=== PATIENT | male | born 1955 | race Caucasian/White ===

== ENCOUNTER 2016-12-05 05:24 | Inpatient (IN) | payer BC, OTHER ==
[2016-12-05] MEDS ORDERED: IPRATROPIUM-ALBUTEROL 3 ML NEB INHALATION STA (05:35)
--- NOTE | 2016-12-05 05:38 | ED ---
Chest Pain HPI - General Source: patient, RN notes reviewed Mode of arrival: wheelchair Limitations: no limitations - History of Present Illness MD Complaint: chest pain, other <Julien Rodriguez - Last Filed: 12/05/16 06:57> <Rich Borja - Last Filed: 12/05/16 08:35> - General Stated Complaint: RYAN, right side pain Time Seen by Provider: 12/05/16 05:30 - History of Present Illness Initial Comments: This is a 61-year-old male who states he had the onset of difficulty breathing is sharp right-sided chest pain this started about 2 days ago. He has any cough productive of clear phlegm no fevers chills or sweats he has no prior history of heart or lung disease though he is a daily marijuana smoker. The pain does get worse with movements and deep breathing. He points to the right anterior chest wall as area of the pain. The pain is mild to moderate in severity when necessary. (Julien Rodriguez) - Related Data Allergies Allergy/AdvReac Type Severity Reaction Status Date / Time No Known Allergies Allergy Verified 12/05/16 05:42 Review of Systems ROS Other: All systems not noted in ROS Statement are negative. <Julien Rodriguez - Last Filed: 12/05/16 06:57> ROS Other: All systems not noted in ROS Statement are negative. <Rich Borja - Last Filed: 12/05/16 08:35> ROS Statement: Those systems with pertinent positive or pertinent negative responses have been documented in the HPI. EKG Findings - EKG Results: EKG: interpreted by ERMD, WNL, sinus rhythm, normal axis, normal QRS, normal ST/ T, no acute changes (EKG shows normal sinus rhythm of 83. Interval 142 QRS 92 ET since QTC of 368/[address]-T wave changes this is a normal-appearing EKG.) <Julien Rodriguez - Last Filed: 12/05/16 06:57> Past Medical History Past Medical History: No Reported History History of Any Multi-Drug Resistant Organisms: None Reported Past Surgical History: Hernia Repair Past Psychological History: No Psychological Hx Reported Smoking Status: Current every day smoker Past Alcohol Use History: Daily Past Drug Use History: Marijuana <Julien Rodriguez - Last Filed: 12/05/16 06:57> General Exam Limitations: no limitations General appearance: alert, anxious Head exam: Present: atraumatic, normocephalic, normal inspection Eye exam: Present: normal appearance, PERRL, EOMI. Absent: scleral icterus, conjunctival injection, periorbital swelling ENT exam: Present: normal exam, mucous membranes moist Neck exam: Present: normal inspection. Absent: tenderness, meningismus, lymphadenopathy Respiratory exam: Present: wheezes, decreased breath sounds. Absent: respiratory distress, rales, rhonchi, stridor Cardiovascular Exam: Present: regular rate, normal rhythm, normal heart sounds. Absent: systolic murmur, diastolic murmur, rubs, gallop, clicks GI/Abdominal exam: Present: soft, normal bowel sounds. Absent: distended, tenderness, guarding, rebound, rigid Extremities exam: Present: normal inspection, full ROM, normal capillary refill. Absent: tenderness, pedal edema, joint swelling, calf tenderness Back exam: Present: normal inspection Neurological exam: Present: alert, oriented X3, CN II-XII intact Psychiatric exam: Present: normal affect, normal mood Skin exam: Present: warm, dry, intact, normal color. Absent: rash <Julien Rodriguez - Last Filed: 12/05/16 06:57> <Rich Borja - Last Filed: 12/05/16 08:35> - General Exam Comments Initial Comments: This is a well-developed well-nourished awake alert oriented 3 male (Julien Rodriguez) Course <Julien Rodriguez - Last Filed: 12/05/16 06:57> <Rich Borja - Last Filed: 12/05/16 08:35> Vital Signs 12/05/16 12/05/16 12/05/16 05:31 05:39 06:00 Temperature 98.6 F Pulse Rate 82 84 Respiratory 17 17 Rate Blood Pressure 165/110 O2 Sat by Pulse 97 Oximetry 12/05/16 12/05/16 12/05/16 06:06 06:17 08:00 Temperature 99 F Pulse Rate 88 84 81 Respiratory 20 19 Rate Blood Pressure 133/90 131/91 O2 Sat by Pulse 97 98 Oximetry - Reevaluation(s) Reevaluation #1: 12/05/16 06:57 I did discuss findings with the patient and family patient will get a CAT scan of the chest to rule out PE. The case will be discussing endorsed to Dr. Borja who will make the final disposition (Julien Rodriguez) 12/05/16 07:55 Chest x-ray reviewed by myself shows right basilar scarring versus atelectasis. No focal consolidation. Computed tomography scan of the chest read by cardiology shows no large pulmonary emboli. Limited exam. Right middle lobe atelectasis or pneumonia. Left adrenal mass, likely adenoma. 12/05/16 08:33 Patient reexamined and resting comfortably in bed. Patient still complains of discomfort on the right side of the chest. Patient does admit to having some cough and some sputum production. Patient will be covered with antibiotics for possible ammonia. Limited computed tomography scan therefore VQ scan will be ordered. Patient was updated on results including adrenal mass and need for follow-up with adrenal mass. Dr. Kruse has been paged for admission. 12/05/16 08:33 Patient does not meet sepsis criteria (Rich Borja) Disposition <Julien Rodriguez - Last Filed: 12/05/16 06:57> Decision Time: 08:34 <Rich Borja - Last Filed: 12/05/16 08:35> Clinical Impression: Chest pain, Pneumonia Disposition: ADMITTED IP TO THIS HOSP Referrals: Nonstaff,Physician [Primary Care Provider] - 1-2 days
[2016-12-05 05:55] LABS: Basophils % (A) 0 %; CH 33.4; Eosinophils # (A) 0.1 k/uL (0-0.7); Eosinophils % (A) 2 %; HCT 44.2 % (39.0-53.0); HDW 1.99; HGB 14.3 gm/dL (13.0-17.5); Luc # (Auto) 0.22; Luc % (Auto) 3; Lymphocytes # (A) 1.3 k/uL (1.0-4.8); Lymphocytes % (A) 19 %; MCHC 32.4 g/dL (31.0-37.0); MCV 101.7 fL (80.0-100.0); Macrocytosis Slight; Mean Platelet Volume 7.6; Monocytes # (A) 0.6 k/uL (0-1.0); Monocytes % (A) 9 %; Neutrophils # (A) 4.8 k/uL (1.3-7.7); Neutrophils % (A) 68 %; RBC 4.35 m/uL (4.30-5.90); RDW 13.6 % (11.5-15.5); WBC 7.1 k/uL (3.8-10.6); WBC (Perox) 7.22
[2016-12-05 06:05] LABS: ALT 70 U/L (21-72); AST 71 U/L (17-59); Alkaline Phosphatase 67 U/L (38-126); Anion Gap 9 mmol/L; Blood Urea Nitrogen 9 mg/dL (9-20); Calcium 9.4 mg/dL (8.4-10.2); Carbon Dioxide 29 mmol/L (22-30); Chloride 100 mmol/L (98-107); Glucose 87 mg/dL (74-99); Magnesium 1.9 mg/dL (1.6-2.3); Non-African American GFR(MDRD) >60 (>60 ml/min/1.73 sqM); Potassium 4.2 mmol/L (3.5-5.1); Sodium 138 mmol/L (137-145); Total Bilirubin 1.3 mg/dL (0.2-1.3); Total Protein 6.8 g/dL (6.3-8.2)
[2016-12-05 06:08] LABS: INR 0.9 (<1.2); Partial Thromboplastin Time 25.1 sec (22.0-30.0); Prothrombin Time 9.3 sec (9.0-12.0)
[2016-12-05 06:17] LABS: Creatine Kinase 330 U/L (55-170)
--- NOTE | 2016-12-05 06:24 | XR ---
Exam: XR CXR 2 VIEWS History: Chest pain. Comparison: None provided. Technique: 2 views. Findings: Bibasilar atelectasis/scarring, right greater than left. No definite consolidation appreciated. Heart shadow is normal in size. Pression: Probably bibasilar atelectasis/scarring. No definite focal consolidation.
[2016-12-05 06:30] LABS: Troponin I <0.012 ng/mL (0.000-0.034)
[2016-12-05] MEDS ORDERED: RX INFO: IV CONTRAST WAS GIVEN 1 EACH MISC MISCELLANE PRN (06:56)
--- NOTE | 2016-12-05 07:36 | CT ---
EXAMINATION TYPE: CT angio chest DATE OF EXAM: 12/05/2016 7:26 AM COMPARISON: NONE HISTORY: Chest pain and SOB CT DLP: 305 mGycm Automated exposure control for dose reduction was used. CONTRAST: CTA scan of the thorax is performed with IV Contrast, patient injected with 70 mL of Omnipaque 350, p ulmonary embolism protocol. . FINDINGS: There is right middle lobe airspace disease. There is bibasilar airspace disease. This may represent atelectasis or pneumonia. There is no significant axillary, mediastinal or hilar adenopathy. There is a small right effusion. T here is no pericardial fluid. The heart is mildly enlarged. There is a suboptimal contrast bolus. There are no large pulmonary emboli. The aorta is normal in caliber without evidence of dissection. There is part of a metallic lead in place at the base of the heart. Most of the lesion has been remov ed. There is a low attenuating 2.2 cm left adrenal mass. The right adrenal gland is normal. Visualized portions of the upper abdomen are otherwise unremarkable. There is minimal hypertrophic spondylosis within the dorsal spine. IMPRESSION: 1. SUBOPTIMAL EXAMINATION DEMONSTRATING NO LARGE PULMONARY EMBOLI. 2. CARDIOMEGALY. 3. RIGHT MIDDLE AND BIBASILAR AIRSPACE DISEASE EITHER REPRESENTING ATELECTASIS OR PNEUMONIA. NUMBER 4 CARDIOMEGALY. 5. HYPOATTENUATING LEFT ADRENAL MASS. STATISTICALLY IS MOST LIKELY AN ADRENAL ADENOMA. 6. MINIMAL DEGENERATIVE CHANGE WITHIN THE SPINE.
[2016-12-05] MEDS ORDERED: IPRATROPIUM-ALBUTEROL 3 ML NEB INHALATION PRN (08:35)
[2016-12-05] MEDS ORDERED: AZITHROMYCIN 500 MG in SODIUM CHLORIDE 0.9% 250 ML IVPB STA (08:35)
[2016-12-05] MEDS ORDERED: NITROGLYCERIN SL TABS 0.4 MG TAB SUBLINGUAL PRN (08:35)
[2016-12-05] MEDS ORDERED: PNEUMONIA PROTOCOL UTILIZED 1 EACH MISC PO PRN (08:35)
[2016-12-05] MEDS ORDERED: SODIUM CHLORIDE 0.9% 1,000 ML IV SCH (08:45)
--- NOTE | 2016-12-05 10:54 | NM ---
EXAMINATION TYPE: NM pul vent and perfuse DATE OF EXAM: 12/05/2016 COMPARISON: NONE HISTORY: Chest pain and dyspnea. TECHNIQUE: Utilizing inhalation of 70 mCi Tc 99m DTPA aerosol and intravenous injection of 5.43 mCi of Tc 99m MAA, ventilation and perfusion images are acquired post injection in multiple projections. FINDINGS: Normal radiotracer distribution is noted in the lungs. There is no evidence of mismatched defects. IMPRESSION: THIS EXAMINATION IS LOW PROBABILITY FOR PULMONARY EMBOLUS.
[2016-12-05] MEDS ORDERED: HYDROcodone/APAP 5-325MG 1 EACH TAB PO STA (11:06)
[2016-12-05 12:18] LABS: Creatine Kinase 236 U/L (55-170)
[2016-12-05 12:31] LABS: Troponin I <0.012 ng/mL (0.000-0.034)
[2016-12-05 12:36] LABS: Creatine Kinase MB 2.7 ng/mL (0.0-2.4)
[2016-12-05 14:05] VITALS: BP 136/83; PULSE 96; RESP 16; TEMP 98.4
--- NOTE | 2016-12-05 14:51 | P.HPIM ---
History of Present Illness Patient is a very pleasant 61-year-old gentleman came with sharp right-sided chest pain started about 3 days ago. Patient chest pain is pruritic in nature. Patient denied any flulike symptoms cough. Patient son was recently diagnosed with pleurisy. Patient pain improved now. Patient underwent CT angios the chest which did not show any pulmonary embolism underwent VQ scan as well which did not show any PE. Patient CAT scan findings are not consistent with pneumonia. Patient does have tenderness upon palpation of the right side of the chest. Patient was ruled out acute coronary syndromes with troponin and EKG which showed sinus rhythm. Patient does smoke marijuana once a day. Patient denied any fever chills, cough patient has good air entry into bilateral lung franklin. Patient probably has pleurisy or musculoskeletal chest pain patient will be discharged on naproxen patient takes lansoprazole for gastroesophageal reflux disease. If his symptoms of gastroesophageal reflux disease get worse with naproxen patient will need prednisone and patient will follow with his primary care physician for that. Review of Systems REVIEW OF SYSTEMS: CONSTITUTIONAL: No fever, no malaise, no fatigue. HEENT: No recent visual problems or hearing problems. Denied any sore throat. CARDIOVASCULAR: orthopnea, PND, no palpitations, no syncope. PULMONARY: No shortness of breath, no cough, no hemoptysis. GASTROINTESTINAL: No diarrhea, no nausea, no vomiting, no abdominal pain. Normoactive bowel sounds. NEUROLOGICAL: No headaches, no weakness, no numbness. HEMATOLOGICAL: Denies any bleeding or petechiae. GENITOURINARY: Denies any burning micturition, frequency, or urgency. MUSCULOSKELETAL/RHEUMATOLOGICAL: Denies any joint pain, swelling, or any muscle pain. ENDOCRINE: Denies any polyuria or polydipsia. The rest of the 14-point review of systems is negative. Past Medical History Past Medical History: GERD/Reflux History of Any Multi-Drug Resistant Organisms: None Reported Past Surgical History: Hernia Repair Additional Past Surgical History / Comment(s): right ACL repair Past Psychological History: No Psychological Hx Reported Smoking Status: Never smoker Past Alcohol Use History: Daily Past Drug Use History: Marijuana - Past Family History Mother Family Medical History: No Reported History Medications and Allergies Home Medications Medication Instructions Recorded Confirmed Type Dronabinol [Marinol] 2.5 mg PO DAILY PRN 12/05/16 12/05/16 History Lansoprazole [Prevacid] 30 mg PO DAILY 12/05/16 12/05/16 History Multivitamins, Thera [Multivitamin 1 tab PO DAILY 12/05/16 12/05/16 History (formulary)] Quintin's Wort 150 mg PO DAILY 12/05/16 12/05/16 History Allergies Allergy/AdvReac Type Severity Reaction Status Date / Time No Known Allergies Allergy Verified 12/05/16 05:42 Physical Exam Vitals: Vital Signs Temp Pulse Pulse Resp BP BP Pulse Ox 12/05/16 14:03 98.4 F 96 16 136/83 98 12/05/16 11:21 99 F 93 18 147/100 98 12/05/16 10:59 93 18 147/100 98 12/05/16 09:33 89 12/05/16 09:23 86 12/05/16 09:00 89 19 140/91 97 12/05/16 08:00 99 F 81 19 131/91 98 12/05/16 06:17 84 20 133/90 97 12/05/16 06:06 88 12/05/16 06:00 84 12/05/16 05:39 17 12/05/16 05:31 98.6 F 82 17 165/110 97 Intake and Output 12/04/16 12/05/16 12/05/16 22:59 06:59 14:59 Other: Weight 84.822 kg PHYSICAL EXAMINATION: GENERAL: The patient is alert and oriented x3, not in any acute distress. Well developed, well nourished. HEENT: Pupils are round and equally reacting to light. EOMI. No scleral icterus. No conjunctival pallor. Normocephalic, atraumatic. No pharyngeal erythema. No thyromegaly. CARDIOVASCULAR: S1 and S2 present. No murmurs, rubs, or gallops. PULMONARY: Chest is clear to auscultation, no wheezing or crackles. Patient has reproducible chest pain ABDOMEN: Soft, nontender, nondistended, normoactive bowel sounds. No palpable organomegaly. MUSCULOSKELETAL: No joint swelling or deformity. EXTREMITIES: No cyanosis, clubbing, or pedal edema. NEUROLOGICAL: Gross neurological examination did not reveal any focal deficits. SKIN: No rashes. Results CBC & Chem 7: 12/05/16 05:45 12/05/16 05:45 Labs: Abnormal Lab Results - Last 24 Hours (Table) 12/05/16 12/05/16 12/05/16 Range/Units 05:45 05:45 05:45 MCV 101.7 H (80.0-100.0) fL D-Dimer (<0.60) mg/L FEU AST 71 H (17-59) U/L Total Creatine Kinase 330 H (55-170) U/L CK-MB (CK-2) 4.0 H* (0.0-2.4) ng/mL 12/05/16 12/05/16 Range/Units 05:45 11:22 MCV (80.0-100.0) fL D-Dimer 1.71 H (<0.60) mg/L FEU AST (17-59) U/L Total Creatine Kinase 236 H (55-170) U/L CK-MB (CK-2) 2.7 H* (0.0-2.4) ng/mL Thrombosis Risk Factor Assmnt - Choose All That Apply Each Risk Factor Represents 2 Points: Age 61-74 years Thrombosis Risk Factor Assessment Total Risk Factor Score: 2 Thrombosis Risk Factor Assessment Level: Low Risk Assessment and Plan Plan: #1 chest pain: Secondary to pleurisy or musculoskeletal in nature or costochondritis. Patient will be discharged on naproxen. Rule out pulmonary embolism. #2 rule out pulmonary embolism #3 gastric esophageal reflux disease #4 marijuana use :counseling was provided
--- NOTE | 2016-12-05 14:52 | P.DS ---
Providers Date of admission: 12/05/16 08:35 Attending physician: Leonel Kruse Primary care physician: Physician Nonstaff Hospital Course: Please refer to HPI Plan - Discharge Summary New Discharge Prescriptions: New Naproxen [Naprosyn] 500 mg PO Q12HR #15 tab Discontinued traMADol HCL [Ultram] 50 mg PO BID PRN PRN Reason: Pain oxyCODONE HCL 20 mg PO BID PRN PRN Reason: Pain No Action Lansoprazole [Prevacid] 30 mg PO DAILY Multivitamins, Thera [Multivitamin (formulary)] 1 tab PO DAILY Dronabinol [Marinol] 2.5 mg PO DAILY PRN PRN Reason: IBS Quintin's Wort 150 mg PO DAILY Discharge Medication List Dronabinol [Marinol] 2.5 mg PO DAILY PRN 12/05/16 [History] Lansoprazole [Prevacid] 30 mg PO DAILY 12/05/16 [History] Multivitamins, Thera [Multivitamin (formulary)] 1 tab PO DAILY 12/05/16 [History ] Naproxen [Naprosyn] 500 mg PO Q12HR #15 tab 12/05/16 [Rx] Fries's Wort 150 mg PO DAILY 12/05/16 [History] Follow up Appointment(s)/Referral(s): Nonstaff,Physician [Primary Care Provider] - 1-2 days Discharge Disposition: HOME SELF-CARE
[2016-12-06] MEDS ORDERED: ASPIRIN 325 MG TAB PO SCH (09:00)
[2016-12-06] MEDS ORDERED: AZITHROMYCIN 500 MG TAB PO SCH (09:00)
== END 2016-12-05 16:09 | disposition home or self-care (01) | DRG 195 ==
LOC: EC 05:24 → 5MS5E 08:35 → 3SUR 09:13
PROVIDERS: ADMIT Hospitalist; ATTEND Hospitalist
DX: R09.1 Pleurisy (principal); F12.90 Cannabis use, unspecified, uncomplicated; K21.9 Gastro-esophageal reflux disease without esophagitis; R93.49 Abnormal radiologic findings on diagnostic imaging of other urinary organs; Z71.51 Drug abuse counseling and surveillance of drug abuser; Z82.69 Family history of other diseases of the musculoskeletal system and connective tissue; Z79.899 Other long term (current) drug therapy
CPT/HCPCS: 36415; 71020; 71275; 78582; 80053; 82550; 82553; 83735; 83880; 84484; 85025; 85379; 85610; 85730; 87040; 93005; 94640; 96365; 96367; 99285

== ENCOUNTER → 2020-01-03 | Outpatient (CLI) | payer MEDICARE ==
--- NOTE | 2020-01-03 13:27 | US ---
EXAMINATION TYPE: US venous doppler duplex LE LT DATE OF EXAM: 01/03/2020 1:21 PM COMPARISON: NONE CLINICAL HISTORY: R60.0 localized edema. Left leg pain/swelling SIDE PERFORMED: Left TECHNIQUE: The lower extremity deep venous system is examined utilizing real time linear array sonog brandno with graded compression, doppler sonography and color-flow sonography. VESSELS IMAGED: External Iliac Vein (EIV) Common Femoral Vein Deep Femoral Vein Greater Saphenous Vein * Femoral Vein Popliteal Vein Small Saphenous Vein * Proximal Calf Veins (* superficial vessels) Left Leg: Negative for DVT IMPRESSION: No evidence for DVT.
== END | disposition home or self-care (01) ==
LOC: RADUSWWP 12:56
PROVIDERS: ATTEND Family Medicine
DX: R60.0 Localized edema (principal); R79.1 Abnormal coagulation profile

== ENCOUNTER → 2020-03-12 | Outpatient (CLI) | payer MEDICARE ==
--- NOTE | 2020-03-12 13:59 | P.STRESS ---
- Stress Test Note Stress Test Results/Findings: Exam Performed: stress test Exam Date: 03/12/20 Reason for Exam: ABN EKG / CP Height: 5 ft 11 in Weight: 90.718 kg Protocol: CECILIO Stage: 3 Duration of Exercise: 9:00 Resting Heart Rate: 71 Resting Blood Pressure: 149/97 Maximum Achieved Heart Rate: 130 Maximum Achieved Blood Pressure: 203/101 85% PMHR: 132 100% PMHR: 155 METS: 10.5 Technologist Comment: Stress Test Results/Findings: Baseline heart rate 71 beats a minute, Baseline blood pressure 149/97 mmHg Baseline twelve-lead ECG showed sinus rhythm and normal ST segments Patient exercised on a Cecilio protocol for 9 minutes achieving a peak heart rate of 130 beats a minute Peak blood pressure 203/101 mmHg There was no ECG evidence for ischemia No arrhythmias noted Nuclear portion will be reported separately
== END | disposition home or self-care (01) ==
LOC: RADNMMAIN 08:24
PROVIDERS: ATTEND Family Medicine
DX: R94.31 Abnormal electrocardiogram [ECG] [EKG] (principal); I49.8 Other specified cardiac arrhythmias
CPT/HCPCS: 93017

== ENCOUNTER → 2020-06-14 | Outpatient (CLI) | payer MEDICARE | END | disposition home or self-care (01) | LOC: LABWHC1 11:16 | PROVIDERS: ATTEND Urology | DX: R97.20 Elevated prostate specific antigen [PSA] (principal) | CPT/HCPCS: 36415; 84153 ==

== ENCOUNTER → 2020-09-27 | Outpatient (CLI) | payer MEDICARE ==
--- NOTE | 2020-09-27 09:22 | US ---
EXAMINATION TYPE: US abdomen complete DATE OF EXAM: 09/27/2020 COMPARISON: 10/21/2012 CLINICAL HISTORY: R60.0 Local Edema, R14.0 Abdominal distension. EXAM MEASUREMENTS: Liver Length: 16.5 cm Gallbladder Wall: 0.2 cm CBD: 0.6 cm Spleen: 12.0 cm Right Kidney: 10.7 X 5.2 X 5.3 cm Left Kidney: 11.4 X 6.1 X 4.9 cm Pancreas: Head and tail of pancreas partially obscured by bowel gas, portions visualized wnl Liver: small cyst left lobe measuring 0.8 x 0.7 x 0.6cm Gallbladder: wnl Evidence for sonographic Pringle's sign: No CBD: wnl Spleen: wnl Right Kidney: No hydronephrosis or masses seen Left Kidney: No hydronephrosis or masses seen Upper IVC: very limited portion visualized Abd Aorta: wnl as seen, bifurcation obscured The liver parenchyma is mildly echogenic suggestive of fatty infiltration. IMPRESSION: 1. Limited visualization of the pancreas and upper IVC. 2. Mild hepatic steatosis. Small cyst in the left lobe of the liver measuring 8 mm. 3. No gallstones, sludge, or pericholecystic fluid. No gallbladder wall thickening. 4. No hydronephrosis or renal calculi. 5. No splenomegaly.
== END | disposition home or self-care (01) ==
LOC: RADUSWWP 07:12
PROVIDERS: ATTEND Family Medicine
DX: K76.0 Fatty (change of) liver, not elsewhere classified (principal); K76.89 Other specified diseases of liver
CPT/HCPCS: 76700

== ENCOUNTER → 2020-12-12 | Outpatient (CLI) | payer MEDICARE ==
--- NOTE | 2020-12-12 16:56 | US ---
EXAMINATION TYPE: US venous doppler duplex LE DATE OF EXAM: 12/12/2020 2:05 PM COMPARISON: LOWER EXTREMITY VENOUS INSUFFICIENCY CLINICAL HISTORY: 65-year-old male R60.0 Localized edema. FINDINGS: SIDE PERFORMED: Bilateral 1) Color flow is present and patency is documented in the following vessels. No DVT or SVT is noted . Common Femoral Vein Deep Femoral Vein Femoral Vein Popliteal Vein Proximal Calf Veins Greater Saph Vein Upper Small Saph Vein 2) There is venous reflux noted at the following venous levels: Delayed valve closure at right CFV, right Deep Femoral Vein. Femoral Vein. 3) Incompetent perforators are noted at these levels: None IMPRESSION: Venous reflux noted in the right lower extremity at the level of the common femoral vein, deep femora l vein, and superficial femoral vein with delayed valve closure.
--- NOTE | 2020-12-12 17:36 | ECHOF ---
Referral Reason:R60.0 localized edema MEASUREMENTS -------- HEIGHT: 180.3 cm WEIGHT: 95.3 kg BP: RVIDd: 3.9 cm (< 3.3) IVSd: 1.1 cm (0.6 - 1.1) LVIDd: 5.4 cm (3.9 - 5.3) LVPWd: 1.1 cm (0.6 - 1.1) IVSs: 1.6 cm LVIDs: 3.6 cm LVPWs: 1.7 cm LAESV Index (A-L): 45.61 ml/m Ao Diam: 3.6 cm (2.0 - 3.7) AV Cusp: 2.1 cm (1.5 - 2.6) MV EXCURSION: 20.468 mm (> 18.000) MV EF SLOPE: 82 mm/s (70 - 150) EPSS: 1.1 cm MV E Tad: 0.60 m/s MV DecT: 227 ms MV A Tad: 0.47 m/s MV E/A Ratio: 1.27 RAP: 5.00 mmHg RVSP: 29.49 mmHg FINDINGS -------- Sinus rhythm. This was a technically adequate study. The left ventricular size is normal. There is borderline concentric left ventricular hypertrophy. Overall left ventricular systolic function is normal with, an EF between 55 - 60 %. The diastolic filling pattern is normal for the age of the patient 8.78. The right ventricle is mild to moderately enlarged. LA is moderately dilated 34-39 ml/m2 The right atrial size is normal. Interatrial and interventricular septum intact. There is no evidence of aortic regurgitation. There is no evidence of aortic stenosis. [id number] mitral regurgitation is present. Mild tricuspid regurgitation present. There is no evidence of pulmonary hypertension. The right v entricular systolic pressure, as measured by Doppler, is 29.49mmHg. There is no pulmonic regurgitation present. The aortic root size is normal. IVC Not well visulized. There is no pericardial effusion. CONCLUSIONS -------- 1. The left ventricular size is normal. 2. There is borderline concentric left ventricular hypertrophy. 3. Overall left ventricular systolic function is normal with, an EF between 55 - 60 %. 4. The diastolic filling pattern is normal for the age of the patient 8.78 5. The right ventricle is mild to moderately enlarged. 6. LA is moderately dilated 34-39 ml/m2 7. [id number] mitral regurgitation is present. 8. Mild tricuspid regurgitation present. 9. There is no evidence of pulmonary hypertension. 10. The right ventricular systolic pressure, as measured by Doppler, is 29.49mmHg. BIOSTATISTICS DIRECTOR: Alessia Mcmanus RDCS
== END | disposition home or self-care (01) ==
LOC: RADUSWWP 13:20
PROVIDERS: ATTEND Family Medicine
DX: I87.2 Venous insufficiency (chronic) (peripheral) (principal)
CPT/HCPCS: 93306; 93970

== ENCOUNTER → 2021-02-17 | Outpatient (CLI) | payer MEDICARE ==
--- NOTE | 2021-02-17 10:14 | XR ---
EXAMINATION TYPE: XR thoracic spine complete DATE OF EXAM: 02/17/2021 CLINICAL HISTORY: pain TECHNIQUE: Frontal, lateral, and swimmer's view of thoracic spine are obtained. COMPARISON: None. FINDINGS: Thoracic spine show satisfactory alignment without evidence of acute fracture or dislocatio n. Vertebral body heights are preserved. Moderate multilevel degenerative spondylosis. Visualized ribs are unremarkable. IMPRESSION: No acute fracture or dislocation is seen in the thoracic spine. ICD 10 NO FRACTURE, INIT IAL EVALUATION
== END | disposition home or self-care (01) ==
LOC: RADXRMAIN 09:32
PROVIDERS: ATTEND Anesthesiology
DX: M54.6 Pain in thoracic spine (principal)
CPT/HCPCS: 72072

== ENCOUNTER → 2023-02-04 | Outpatient (CLI) | payer MEDICARE ==
--- NOTE | 2023-02-04 15:28 | US ---
EXAMINATION TYPE: US abdomen complete DATE OF EXAM: 02/04/2023 COMPARISON: NONE CLINICAL INDICATION: Male, 67 years old with history of R79.9 ABNORMAL FINDING OF BLOOD CHEMISTRY, UN SPECI; TECHNIQUE: Multiple sonographic images of the abdomen are obtained. FINDINGS: EXAM MEASUREMENTS: Liver Length: 19.1 cm Gallbladder Wall: .3 cm CBD: 1.0 cm Spleen: 13.8 cm Right Kidney: 11.1 x 5.6 x 4.5 cm Left Kidney: 11.9 x 5.9 x 5.2 cm Pancreas: Only small portions of the pancreatic neck are seen. Remainder is obscured by bowel gas sh adowing. Liver: Marked increased echogenicity with far field attenuation. This secondarily limits assessment f or focal lesions. Gallbladder: Multiple small layering gallstones. Evidence for sonographic Pringle's sign: No CBD: Dilated Spleen: wnl Right Kidney: No hydronephrosis or masses seen Left Kidney: No hydronephrosis or masses seen Upper IVC: wnl Abd Aorta: Proximal limited due to bowel gas. IMPRESSION: 1. Moderate to severe hepatic steatosis. Appropriate clinical management advised. 2. Small layering gallstones. 3. Dilated bile duct measuring up to 1 cm. Unclear if this is chronic for the patient. If concern for early biliary obstruction, correlate with alkaline phosphatase and bilirubin levels and possibly wit h ERCP or MRCP.
[2023-02-04 16:34] LABS: ALT 44 U/L (10-49); AST 75 U/L (14-35); Albumin 4.3 d/dL (3.8-4.9); Albumin/Globulin Ratio 1.87 Ratio (1.60-3.17); Alkaline Phosphatase 120 U/L (41-126); BUN/Creat Ratio 12.38 Ratio (12.00-20.00); Blood Urea Nitrogen 9.9 mg/dL (9.0-27.0); Carbon Dioxide 30.8 mmol/L (21.6-31.8); Chloride 100 mmol/L (96-109); Globulin 2.3 d/dL (1.6-3.3); Glucose 91 mg/dL (70-110); Potassium 4.8 mmol/L (3.5-5.5); Sodium 140 mmol/L (135-145); Total Bilirubin 0.6 mg/dL (0.3-1.2); Total Protein 6.6 d/dL (6.2-8.2)
== END | disposition home or self-care (01) ==
LOC: RADUSWWP 08:06
PROVIDERS: ATTEND Internal Medicine Geriatric Medicine
DX: K76.0 Fatty (change of) liver, not elsewhere classified (principal); K80.20 Calculus of gallbladder without cholecystitis without obstruction; K83.8 Other specified diseases of biliary tract; R79.9 Abnormal finding of blood chemistry, unspecified
CPT/HCPCS: 76700; 80053

== ENCOUNTER → 2023-05-31 | Outpatient (CLI) | payer MEDICARE ==
--- NOTE | 2023-05-31 09:36 | US ---
EXAMINATION TYPE: US abdomen complete DATE OF EXAM: 05/31/2023 COMPARISON: NONE CLINICAL INDICATION: Male, 68 years old with history of K80.50 CALCULUS OF BILE DUCT; calculus of CBD TECHNIQUE: Multiple sonographic images of the abdomen are obtained. FINDINGS: EXAM MEASUREMENTS: Liver Length: 19.2 cm Gallbladder Wall: .3 cm CBD: 1.2 cm Spleen: 11.9 cm Right Kidney: 10.1 x 5.6 x 4.3 cm Left Kidney: 11.2 x 5.9 x 4.9 cm TELESALES TEAM LEADER NOTES: Pancreas: Obscured by bowel gas Liver: Increased attenuation Gallbladder: Multiple stones seen. Evidence for sonographic Pringle's sign: no CBD: dilated Spleen: wnl Right Kidney: No hydronephrosis or masses seen Left Kidney: No hydronephrosis or masses seen Upper IVC: wnl Abd Aorta: wnl The liver is homogenous. The intrahepatic portion of the IVC and proximal abdominal aorta are within normal limits. Multiple gallstones noted. Common bile duct is dilated at 1.2 cm. The visualized port ions of the pancreas are homogenous. The spleen is unremarkable. Kidneys are symmetric and free of hydronephrosis. No renal lesions are seen. IMPRESSION: Multiple gallstones noted. Common bile duct is dilated at 1.2 cm.
== END | disposition home or self-care (01) ==
LOC: RADUSWWP 08:48
PROVIDERS: ATTEND Internal Medicine Geriatric Medicine
DX: K80.50 Calculus of bile duct without cholangitis or cholecystitis without obstruction (principal)
CPT/HCPCS: 76700

== ENCOUNTER 2024-08-23 10:43 | Emergency (ER) | payer MEDICARE ==
[2024-08-23 10:51] VITALS: TEMP 98.2
--- NOTE | 2024-08-23 11:33 | ED ---
Lower Extremity Injury HPI - General Chief Complaint: Extremity Injury, Lower Stated Complaint: BI Leg Pain, Swelling Time Seen by Provider: 08/23/24 11:27 Source: patient, RN notes reviewed Mode of arrival: ambulatory Limitations: no limitations - History of Present Illness Initial Comments: 69-year-old male with history of hypertension presenting for bilateral lower leg edema x 3 weeks. Reports discoloration, discomfort and edema to the lower legs. Reports he is beginning to experience right knee pain and swelling as well and it is starting to affect his ADLs. Denies chest pain or shortness of breath. Denies blood thinners. Denies surgery or travel within the past 3 months. He is a non-smoker. States this has happened 3 times before where he underwent lab work and ultrasounds and was negative. - Related Data Home Medications Medication Instructions Recorded Confirmed droNABinol [Marinol] 2.5 mg PO HS 12/05/16 06/01/24 Naproxen [Naprosyn] 500 mg PO BID PRN 06/01/24 06/01/24 Pantoprazole Sodium [Protonix] 40 mg PO DAILY 06/01/24 06/01/24 Tamsulosin [Flomax] 0.4 mg PO HS 06/01/24 06/01/24 atenoloL [Tenormin] 50 mg PO HS 06/01/24 06/01/24 carisoprodoL [Soma] 350 mg PO DAILY PRN 06/01/24 06/01/24 hydroCHLOROthiazide [Hydrodiuril] 25 mg PO HS 06/01/24 06/01/24 oxyCODONE HCL [oxyCODONE HCL (IR)] 15 mg PO QID PRN 06/01/24 06/01/24 Previous Rx's Medication Instructions Recorded Oseltamivir [Tamiflu] 75 mg PO Q12HR #9 cap 06/01/24 Furosemide [Lasix] 40 mg PO DAILY 7 Days #7 tablet 08/23/24 Allergies Allergy/AdvReac Type Severity Reaction Status Date / Time No Known Allergies Allergy Verified 08/23/24 10:51 Review of Systems ROS Statement: Those systems with pertinent positive or pertinent negative responses have been documented in the HPI. ROS Other: All systems not noted in ROS Statement are negative. Past Medical History Past Medical History: GERD/Reflux, Hypertension, Prostate Disorder History of Any Multi-Drug Resistant Organisms: None Reported Past Surgical History: Hernia Repair Additional Past Surgical History / Comment(s): right ACL repair. achilles tendon repair. vasectomy Past Psychological History: No Psychological Hx Reported Smoking Status: Never smoker Past Alcohol Use History: Daily Past Drug Use History: Marijuana - Past Family History Mother Family Medical History: No Reported History General Exam Limitations: no limitations General appearance: alert, in no apparent distress Head exam: Present: atraumatic, normocephalic, normal inspection Respiratory exam: Present: normal lung sounds bilaterally. Absent: respiratory distress, wheezes, rales, rhonchi, stridor Cardiovascular Exam: Present: regular rate, normal rhythm, normal heart sounds. Absent: systolic murmur, diastolic murmur, rubs, gallop, clicks Extremities exam: Present: full ROM, normal capillary refill, pedal edema. Absent: normal inspection (2+ edema to bilateral lower extremities with diffuse darkening discoloration. No warmth or drainage), tenderness, joint swelling, calf tenderness Neurological exam: Present: alert, oriented X3 Psychiatric exam: Present: normal affect, normal mood Skin exam: Present: warm, dry, intact, normal color. Absent: rash Course Vital Signs 08/23/24 10:49 Temperature 98.2 F Pulse Rate 70 Respiratory 20 Rate Blood Pressure 168/97 O2 Sat by Pulse 99 Oximetry Medical Decision Making - Medical Decision Making Was pt. sent in by a medical professional or institution ([facility], [facility], urgent care, hospital, or group home...) When possible be specific @ -No Did you speak to anyone other than the patient for history (EMS, parent, family, police, friend...)? What history was obtained from this source @ -No Did you review nursing and triage notes (agree or disagree)? Why? @ -I reviewed and agree with nursing and triage notes Were old charts reviewed (outside hosp., previous admission, EMS record, old EKG, old radiological studies, urgent care reports/EKG's, group home records)? Report findings @ -No old charts were reviewed Differential Diagnosis (chest pain, altered mental status, abdominal pain women, abdominal pain men, vaginal bleeding, weakness, fever, dyspnea, syncope, headache, dizziness, GI bleed, back pain, seizure, CVA, palpatations, mental h ealth, musculoskeletal)? @ -Differential Musculoskeletal Muscular strain, contusion, ligament sprain, fracture, arthritis, septic arthritis, bursitis, cellulitis, muscle spasm, nerve compression, DVT, arterial occlusion, herpes zoster, electrolyte abnormality, tumor.... This is not meant to be in all inclusive list EKG interpreted by me (3pts min.). @ -As above X-rays interpreted by me (1pt min.). @ -Chest x-ray reveals no acute disease CT interpreted by me (1pt min.). @ -None done U/S interpreted by me (1pt. min.). @ -Bilateral lower extremity ultrasound negative for DVT What testing was considered but not performed or refused? (CT, X-rays, U/S, labs)? Why? @ -None What meds were considered but not given or refused? Why? @ -None Did you discuss the management of the patient with other professionals (professionals i.e. , PA, WOOD CUTTER, lab, RT, psych nurse, social work faculty member, metal machine operator, teacher, [employer] operations staff officer, caser in)? Give summary @ -No Was smoking cessation discussed for >3mins.? @ -No Was critical care preformed (if so, how long)? @ -No Were there social determinants of health that impacted care today? How? (Homelessness, low income, unemployed, alcoholism, drug addiction, transpor tation, low edu. Level, literacy, decrease access to med. care, penitentiary, rehab)? @ -No Was there de-escalation of care discussed even if they declined (Discuss DNR or withdrawal of care, Hospice)? DNR status @ -No What co-morbidities impacted this encounter? (DM, HTN, Smoking, COPD, CAD, Cancer, CVA, ARF, Chemo, Hep., AIDS, mental health diagnosis, sleep apnea, morbid obesity)? @ -None Was patient admitted / discharged? Hospital course, mention meds given and route, prescriptions, significant lab abnormalities, going to OR and other pertinent info. @ -Discharge. 69-year-old male presenting for bilateral lower extremity edema x 3 weeks. Neurovascularly intact. No sign of bacterial infection. Lab work remarkable for mildly elevated liver enzymes otherwise unremarkable. Chest x- ray negative for acute disease. Bilateral lower extremity ultrasound negative for DVT. I highly suspect symptoms are due to venous insufficiency. Prescribed 7-day course of Lasix. I recommended compression socks to aid in reducing leg swelling. Appropriate follow-up with PCP and return precautions discussed. Case was discussed with my ED attending Dr. Monreal Undiagnosed new problem with uncertain prognosis? @ -No Drug Therapy requiring intensive monitoring for toxicity (Heparin, Nitro, Insulin, Cardizem)? @ -No Were any procedures done? @ -No Diagnosis/symptom? @ -Venous insufficiency Acute, or Chronic, or Acute on Chronic? @ -Acute Uncomplicated (without systemic symptoms) or Complicated (systemic symptoms)? @ -Uncomplicated Side effects of treatment? @ -No Exacerbation, Progression, or Severe Exacerbation? @ -No Poses a threat to life or bodily function? How? (Chest pain, [place], [place], pneumonia, PE, COPD, DKA, ARF, appy, cholecystitis, CVA, Diverticulitis, Homicidal, Suicidal, threat to staff... and all critical care pts) @ -No - Lab Data Result diagrams: 08/23/24 11:39 08/23/24 11:39 Lab Results 08/23/24 08/23/24 08/23/24 Range/Units 11:39 11:39 11:39 WBC 5.89 (4.50-10.00) 10*3/uL RBC 3.81 L (4.40-5.60) 10*6/uL Hgb 12.8 L (13.0-17.0) g/dL Hct 36.2 L (39.6-50.0) % MCV 95.0 (80.0-97.0) fL MCH 33.6 H (27.0-32.0) pg MCHC 35.4 (32.0-37.0) g/dL Plt Count 184 (140-440) 10*3/uL MPV 8.5 L (9.5-12.2) fL Immature Gran % (Auto) 0.2 % Neutrophils % 70.7 % Lymphocytes % 18.3 % Monocytes % 9.3 % Eosinophils % 1.0 % Basophils % 0.5 % Immature Gran # 0.01 (0.00-0.04) 10*3/uL Neutrophils # 4.16 (1.80-7.70) 10*3/uL Lymphocytes # 1.08 (0.90-5.00) 10*3/uL Monocytes # 0.55 (0.20-1.00) 10*3/uL Eosinophils # 0.06 (0.04-0.35) 10*3/uL Basophils # 0.03 (0.00-0.10) 10*3/uL Sodium 136 L (137-145) mmol/L Potassium 3.4 L (3.5-5.1) mmol/L Chloride 95 L (98-107) mmol/L Carbon Dioxide 30 (22-30) mmol/L Anion Gap 11 mmol/L BUN 10 (9-20) mg/dL Creatinine 0.64 L (0.66-1.25) mg/dL Est GFR (CKD-EPI)AfAm >90 (>60 ml/min/1.73 sqM) Est GFR (CKD-EPI)NonAf >90 (>60 ml/min/1.73 sqM) Glucose 105 H (74-99) mg/dL Calcium 9.8 (8.4-10.2) mg/dL Total Bilirubin 1.3 (0.2-1.3) mg/dL AST 196 H (17-59) U/L ALT 94 H (4-49) U/L Alkaline Phosphatase 164 H (38-126) U/L Troponin I <0.012 (0.000-0.034) ng/mL NT-Pro-B Natriuret Pep 311 pg/mL Total Protein 7.3 (6.3-8.2) g/dL Albumin 4.3 (3.5-5.0) g/dL - EKG Data -: EKG Interpreted by Me EKG Comments: EKG reveals normal sinus rhythm with no ST changes. Ventricular rate 62 bpm, FL interval 164, QRS duration 98, QT/QTc 403/408 Disposition Clinical Impression: Venous insufficiency Disposition: HOME SELF-CARE Condition: Stable Instructions (If sedation given, give patient instructions): Venous Insufficiency (DC) Additional Instructions: Take Lasix daily as prescribed. I recommend compression socks to help reduce leg swelling. Follow-up with your PCP in 1 week. Please return to the Emergency Department if symptoms worsen or any other concerns. Prescriptions: Furosemide [Lasix] 40 mg PO DAILY 7 Days #7 tablet Is patient prescribed a controlled substance at d/c from ED?: No Referrals: Neftali Yo MD [Primary Care Provider] - 1-2 days Time of Disposition: 13:19
[2024-08-23 11:54] LABS: Basophils # (A) 0.03 10*3/uL (0.00-0.10); Basophils % (A) 0.5 %; Eosinophils # (A) 0.06 10*3/uL (0.04-0.35); HCT 36.2 % (39.6-50.0); HGB 12.8 g/dL (13.0-17.0); Lymphocytes # (A) 1.08 10*3/uL (0.90-5.00); Lymphocytes % (A) 18.3 %; MCH 33.6 pg (27.0-32.0); MCHC 35.4 g/dL (32.0-37.0); Mean Platelet Volume 8.5 fL (9.5-12.2); Monocytes # (A) 0.55 10*3/uL (0.20-1.00); Monocytes % (A) 9.3 %; Neutrophils # (A) 4.16 10*3/uL (1.80-7.70); Neutrophils % (A) 70.7 %; Platelet Count 184 10*3/uL (140-440); RBC 3.81 10*6/uL (4.40-5.60); RDW 12.4 % (11.5-14.5); WBC 5.89 10*3/uL (4.50-10.00)
[2024-08-23 12:06] LABS: ALT 94 U/L (4-49); AST 196 U/L (17-59); African American GFR (CKD) >90 (>60 ml/min/1.73 sqM); Albumin 4.3 g/dL (3.5-5.0); Alkaline Phosphatase 164 U/L (38-126); Anion Gap 11 mmol/L; Blood Urea Nitrogen 10 mg/dL (9-20); Calcium 9.8 mg/dL (8.4-10.2); Carbon Dioxide 30 mmol/L (22-30); Chloride 95 mmol/L (98-107); Glucose 105 mg/dL (74-99); Non-African American GFR(CKD) >90 (>60 ml/min/1.73 sqM); Potassium 3.4 mmol/L (3.5-5.1); Sodium 136 mmol/L (137-145); Total Bilirubin 1.3 mg/dL (0.2-1.3); Total Protein 7.3 g/dL (6.3-8.2)
[2024-08-23 12:15] LABS: NT-Pro-B-Type Natriuretic Pept 311 pg/mL
--- NOTE | 2024-08-23 12:39 | XR ---
EXAMINATION TYPE: XR chest 2V DATE OF EXAM: 08/23/2024 11:58 AM COMPARISON: 06/01/2024 CLINICAL INDICATION: Male, 69 years old with history of b/l leg edema, TECHNIQUE: XR chest 2V view(s) obtained. FINDINGS: The heart size is normal. The pulmonary vasculature is normal. The lungs are clear. IMPRESSION: 1. No acute pulmonary process. [facility], Workstation: [facility], 08/23/2024 12:36 PM
--- NOTE | 2024-08-23 12:49 | US ---
EXAMINATION TYPE: US venous doppler duplex LE DATE OF EXAM: 08/23/2024 12:32 PM COMPARISON: NONE CLINICAL INDICATION: Male, 69 years old with history of lower extremity edema; Not on blood thinners, edema, Pain TECHNIQUE: The lower extremity deep venous system is examined utilizing real time linear array sonog brandon with graded compression, color doppler sonography, and spectral doppler. SIDE PERFORMED: Bilateral FINDINGS: VESSELS IMAGED: Common Femoral Vein Deep Femoral Vein Greater Saphenous Vein * Femoral Vein Popliteal Vein Small Saphenous Vein * Proximal Calf Veins (* superficial vessels) Right Leg: Negative for DVT, Color Doppler imaging shows patency of the vessels. Spectral waveforms are within normal limits. Left Leg: Negative for DVT, Color Doppler imaging shows patency of the vessels. Spectral waveforms a re within normal limits. IMPRESSION: 1. Bilateral lower extremity ultrasound negative for deep venous thrombosis. [facility], Workstation: [facility], 08/23/2024 12:47 PM
[2024-08-23 13:30] VITALS: BP 162/99; PULSE 58; RESP 18
== END 2024-08-23 13:30 | disposition home or self-care (01) ==
LOC: EC 10:43
DX: I87.2 Venous insufficiency (chronic) (peripheral) (principal)
CPT/HCPCS: 36415; 71046; 80053; 83880; 84484; 85025; 93005; 93970; 99284